=== PATIENT | female | born 1970 | race Caucasian/White ===

== ENCOUNTER 2017-01-11 07:06 | Day surgery (SDC) | payer BC ==
[2017-01-06 14:17] VITALS: BMI 31.0
[~2017-01-11 07:06] MED LIST: LACTATED RINGERS 1,000 ML IV SCH; LIDOCAINE 1% 20 ML VIAL (10MG/ML) FOR IV START INTRADERMA PRN
[2017-01-11] MEDS ORDERED: DEXAMETHASONE SOD PHOSPHATE 10 MG/ML 1 ML VIAL IV STA (07:18)
[2017-01-11] MEDS ORDERED: ONDANSETRON 4 MG/2 ML VIAL IVP STA (07:18)
[2017-01-11 07:22] VITALS: TEMP 96.9
[2017-01-11] MEDS ORDERED: LACTATED RINGERS 1,000 ML IV ONE (07:30)
[2017-01-11] MEDS ORDERED: ONDANSETRON 4 MG/2 ML VIAL IVP ONE (07:33)
[2017-01-11] MEDS ORDERED: DEXAMETHASONE SOD PHOSPHATE 10 MG/ML 1 ML VIAL IV ONE (07:33)
[2017-01-11] MEDS ORDERED: MIDAZOLAM 2 MG/2 ML VIAL ONE (07:44)
[2017-01-11] MEDS ORDERED: PROPOFOL 10 MG/ML 20 ML VIAL IV ONE (07:44)
--- NOTE | 2017-01-11 08:01 | P.GSHP ---
History of Present Illness H&P Date: 01/11/17 Chief Complaint: Family history colon cancer This is a 46-year-old female referred from Dr. Bernie mike. Patient presents today for colonoscopy. She's had issues with diarrhea. She has a strong family history of colon cancer with her father having colon cancer. Past Medical History Additional Past Medical History / Comment(s): migraines, diarrhea for 17 days, arthritis, History of Any Multi-Drug Resistant Organisms: None Reported Past Surgical History: Hysterectomy, Joint Replacement, Tonsillectomy Additional Past Surgical History / Comment(s): ralf knee replacement, Past Anesthesia/Blood Transfusion Reactions: Postoperative Nausea & Vomiting ( PONV) Smoking Status: Current every day smoker - Past Family History Father Family Medical History: Cancer Mother Family Medical History: Cancer Medications and Allergies Home Medications Medication Instructions Recorded Confirmed Type DULoxetine HCL [Cymbalta] 60 mg PO HS 01/06/17 01/06/17 History Dextroamphetamine/Amphetamine 20 mg PO QAM 01/06/17 01/06/17 History [Adderall Xr] Diphenoxylate HCl/Atropine 1 each PO QID 01/06/17 01/06/17 History [Lomotil 2.5-0.025 mg Tablet] Topiramate [Topamax] 200 mg PO HS 01/06/17 01/06/17 History traMADol HCL [Ultram] 50 mg PO TID PRN 01/06/17 01/06/17 History Allergies Allergy/AdvReac Type Severity Reaction Status Date / Time meperidine [From Demerol] Allergy Itching Verified 01/06/17 14:07 Surgical - Exam Vital Signs Temp Pulse Resp BP Pulse Ox 96.9 F L 73 20 108/73 97 01/11/17 07:20 01/11/17 07:20 01/11/17 07:20 01/11/17 07:20 01/11/17 07:20 - General well developed, no distress - Eyes PERRL - ENT normal pinna - Neck no masses - Respiratory normal expansion - Cardiovascular Rhythm: regular - Abdomen Abdomen: soft, non tender Assessment and Plan Plan: Area Family history of colon cancer We'll perform colonoscopy.
--- NOTE | 2017-01-11 08:17 | P.OP ---
Date of Procedure: 01/11/17 Preoperative Diagnosis: Change in bowel habits Diarrhea Family history colon cancer Postoperative Diagnosis: Normal colonoscopy Procedure(s) Performed: Colonoscopy Implants: Anesthesia: SUGEYA Surgeon: Ck Koehler Pathology: none sent Condition: stable Disposition: PACU Indications for Procedure: Operative Findings: Description of Procedure: PROCEDURE: The patient was placed on the endoscopy table in the lateral position. Digital rectal examination was performed which revealed no abnormalities. . Flexible colonoscope was then placed in the patient's anus and passed throughout the entire colon. The ileocecal valve was visualized. The cecum, ascending, transverse, descending and sigmoid colon were normal. The rectum was normal as well. There were no masses, polyps or diverticula noted in the entire colon. SUMMARY OF FINDINGS: Normal colonoscopy.
[2017-01-11 09:04] VITALS: BP 92/57; PULSE 95; RESP 18
== END 2017-01-11 09:20 | disposition home or self-care (01) ==
LOC: ORWHC2ENDO 07:06
PROVIDERS: ATTEND Surgery
DX: R19.7 Diarrhea, unspecified (principal); R19.4 Change in bowel habit; F39 Unspecified mood [affective] disorder; M19.90 Unspecified osteoarthritis, unspecified site; F17.200 Nicotine dependence, unspecified, uncomplicated; Z88.5 Allergy status to narcotic agent; Z79.899 Other long term (current) drug therapy; Z96.653 Presence of artificial knee joint, bilateral; Z80.0 Family history of malignant neoplasm of digestive organs
CPT/HCPCS: 45378; J2250; J1100; J2405; J2704

== ENCOUNTER → 2017-02-01 | Outpatient (CLI) | payer BC ==
--- NOTE | 2017-02-01 13:50 | FL ---
EXAMINATION TYPE: FL small bowel follow through DATE OF EXAM: 02/01/2017 CLINICAL HISTORY: Diarrhea and weight loss per patient. Noninfected gastroenteritis and colitis per o rder. TECHNIQUE: A single contrast small bowel follow through is performed utilizing barium. A total of 24 seconds of fluoroscopic time was utilized during procedure. 4 spot images are saved to PACS. COMPARISON: None FINDINGS: Extrusion Manager image of the abdomen shows no gross abnormality. The small bowel study shows transit to the colon in less than 210 minutes, upper limits of normal. T here is a normal mucosal fold pattern throughout the small bowel. There is no evidence of any strict ure or filling defect noted. The terminal ileum is not well spotted due to low-lying cecum, appears within normal limits seen best on 210 minute prone image. IMPRESSION: No significant finding is seen to account for patient's symptoms.
== END | disposition home or self-care (01) ==
LOC: RADFLMAIN 09:01
PROVIDERS: ATTEND Family Medicine
DX: K52.9 Noninfective gastroenteritis and colitis, unspecified (principal)
CPT/HCPCS: 74250

== ENCOUNTER → 2021-10-14 | Outpatient (CLI) | payer BC ==
--- NOTE | 2021-10-14 15:32 | CONS ---
CONSULTATION DATE OF SERVICE: 10/14/2021. 51-year-old lady has been evaluated in [facility] for multiple awakenings from sleep and feeling not refreshed in the morning. HISTORY OF PRESENT ILLNESS SLEEP-WAKE EVALUATION: SLEEP SCHEDULE: Patient usually goes to bed around 1 or 2 am and sleeps until 6:30/7:30 a.m. On weekends, she sleeps until 8, 9 or 10 am. FALLING ASLEEP: She does have problems with falling asleep. Has TV set in bedroom. DURING SLEEP: She usually sleeps on the side position. She snores, according to her . She wakes up from sleep up to 7 times usually without nocturia. She grinds her teeth. She feels restless legs and she tosses and turns during the night multiple times. No history of hypnagogic hallucinations, sleep paralysis or cataplexy. [place] Sleepiness Scale is 8 but this is while patient is on treatment with Adderall 20 mg twice a day. DURING THE DAY/SLEEP WAKE EVALUATION: Patient wakes up tired, has difficulties paying attention during the day, has problems with memory concentration, may take naps around 2:00 pm. PAST MEDICAL HISTORY: Positive for ADD and headaches. PAST SURGICAL HISTORY: Bilateral knee surgeries in 2009 and 2013. SOCIAL HISTORY: Positive for smoking for about 20 pack years, quit 3 years ago. Alcohol consumption occasional. MEDICATIONS: Adderall 20 mg twice a day. twice a day. Citalopram 40 mg once a day, trazodone 50 mg at bedtime, lamotrigine 125 mg once a day, propranolol 10 mg once a day, 3 tablets a day, vitamin D supplement. FAMILY HISTORY: Positive for hypertension, arthritis, sleep apnea, headaches, thyroid problems, diabetes, restless legs. REVIEW OF SYSTEMS: Multiple awakenings from sleep, sleepiness during the day, some difficulties initiating sleep. PHYSICAL EXAMINATION: GENERAL: lady without distress. BP 135/72, HR 79, RR 18, height 5 feet 7.5 inches, weight 275.4 pounds, body mass index 42.4, temperature 97.2, oxygen saturation at room air 97%. Oropharynx: Small oropharyngeal air space, wide pillars, low position of soft palate. Around Mallampati 3. NECK: 14-1/2 inches in circumference. Neck: Supple, no JVD. Thyroid is not palpable. LUNGS: Clear to percussion and to auscultation. Good air exchange. No wheezing or rhonchi. HEART: S1, S2 regular. No murmurs, gallops, or rubs. ABDOMEN: Obese. Soft and nontender. Bowel sounds are present. No organomegaly appreciated. EXTREMITIES: No clubbing or cyanosis. ANALYTICAL SCIENTIST: Awake, alert, and oriented X3. Cranial nerves 2 to 7 intact. There is no fasciculation or atrophy. noted. No focal deficits observed. IMPRESSION: 1. Snoring, multiple awakenings from sleep, small oropharyngeal air space, obstructive sleep apnea-hypopnea syndrome. 2. Tiredness and sleepiness during the day while patient is on treatment with Adderall 40 mg a day. Differential diagnosis should include hypersomnia and narcolepsy, type 2. 3. Sleep delay with late time in bed. 4. History of attention-deficit disorder. 5. Headaches. 6. Restless leg symptoms and significant amount of movements during the night, possibly periodic limb movements. PLAN: 1. Home sleep apnea test to check patient's breathing during sleep. 2. If sleep test will be positive for obstructive sleep apnea-hypopnea syndrome, CPAP treatment will be initiated. 3. The patient may need polysomnogram to check her leg movements during sleep and with following multiple sleep latency test for objective evaluation of her symptoms of sleepiness without Adderall if sleep study will be negative for obstructive sleep apnea-hypopnea syndrome. 4. No driving if feeling sleepiness. 5. Losing weight. 6. Exposure to the bright light in the morning with a goal to move sleep cycle earlier. 7. Stimulus control, stop watching TV in bedroom. 8. If the patient will need CPAP treatment, she may need [employer] FX Jess[place] nasal mask to prevent irritation of the head from the mask. The patient is afraid of headaches related to head gear. Thank you very much for referring this patient for consultation. Sincerely, Marty Chiang MD, PhD, FAASM Diplomat of [place] [employer] Sleep Medicine [employer] [place] [employer] Maintenance Worker [facility] MMODL / IJN: [id number] /
== END ==
LOC: SLEEP 11:35
PROVIDERS: ATTEND Internal Medicine
DX: G47.33 Obstructive sleep apnea (adult) (pediatric) (principal); F90.9 Attention-deficit hyperactivity disorder, unspecified type; G25.81 Restless legs syndrome; Z87.891 Personal history of nicotine dependence; Z79.899 Other long term (current) drug therapy; Z88.5 Allergy status to narcotic agent
CPT/HCPCS: 99202